=== PATIENT | female | born 1960 | race Caucasian/White ===

== ENCOUNTER 2025-03-18 09:31 | Emergency (ER) | payer OTHER ==
[~2025-03-18] VITALS: Ht 160 cm; Wt 126.1 kg
[2025-03-18 09:57] LABS: WHITE BLOOD COUNT (AUTO) 6.9 K/uL (4.3-11.0)
[2025-03-18 10:04] LABS: PLATELET COUNT (AUTO) 270 K/uL (150-450)
[2025-03-18 10:07] LABS: RED BLOOD CELL COUNT(AUTO) 4.69 MIL/uL (4.0-5.2); RED CELL DISTRIBUTION WIDTH 13.4 % (11.5-15.0)
[2025-03-18 10:13] LABS: ASPARTATE AMINOTRANSFERASE 21 U/L (15-37); CALCIUM, SERUM 9.4 mg/dL (8.5-10.1); CREATININE 0.8 mg/dL (0.6-1.3); SODIUM SERUM 138 mmol/L (136-145); TOTAL PROTEIN, SERUM 7.4 g/dL (6.4-8.2); UREA NITROGEN, BLOOD 28 mg/dL (7-18)
[2025-03-18] MEDS ORDERED: MECLIZINE HCL 25 MG TABLET ONE (10:49)
[2025-03-18] MEDS: MECLIZINE HCL 25 MG TABLET PO ONE (10:55)
[2025-03-18 11:19] LABS: EOSINOPHILS % (MANUAL) 1 % (0-4); LYMPHOCYTES % (MANUAL) 24 % (16-48); MONOCYTES % (MANUAL) 3 % (0-11.0); NEUTROPHILS % (MANUAL) 72 (42-76)
[2025-03-18 11:20] LABS: PLATELET ESTIMATE ADEQUATE
[2025-03-18] MEDS ORDERED: MECL-159 PO (11:29)
[2025-03-18 13:22] VITALS: BP 138/70; TEMP 97.6; O2SAT 98
== END 2025-03-18 13:24 | disposition home or self-care (01) ==
LOC: ER 09:33
DX: R42 Dizziness and giddiness (principal); R53.1 Weakness; I11.9 Hypertensive heart disease without heart failure; E11.9 Type 2 diabetes mellitus without complications; Z74.01 Bed confinement status; Z88.0 Allergy status to penicillin; Z20.822 Contact with and (suspected) exposure to COVID-19; Z88.8 Allergy status to other drugs, medicaments and biological substances
CPT/HCPCS: 99285; 70450; 71045; 87426; 93005; 85025; 80048; 83690; 80076; 36415; 84484; 82962; J8597

== ENCOUNTER 2025-03-20 08:34 | Emergency (ER) | payer OTHER, MEDICAID ==
[~2025-03-20] VITALS: Ht 157.5 cm; Wt 123.4 kg
[2025-03-20] MEDS: RACEPINEPHRINE HCL 2.25% NEB 0.5 ML VIAL.NEB IH ONE (01:36)
[~2025-03-20 08:34] MED LIST: MECL-159 PO
[2025-03-20] MEDS ORDERED: dexaMETHasone SOD PHOSPHATE 1 ML ONE (09:01)
[2025-03-20 09:06] LABS: PLATELET COUNT (AUTO) 336 K/uL (150-450); RED BLOOD CELL COUNT(AUTO) 4.84 MIL/uL (4.0-5.2); RED CELL DISTRIBUTION WIDTH 13.1 % (11.5-15.0); WHITE BLOOD COUNT (AUTO) 11.9 K/uL (4.3-11.0)
[2025-03-20] MEDS: dexaMETHasone SOD PHOSPHATE 10 MG/ML VIAL IV ONE (09:06)
[2025-03-20 09:13] LABS: CALCIUM, SERUM 9.4 mg/dL (8.5-10.1); CREATININE 0.9 mg/dL (0.6-1.3); SODIUM SERUM 138 mmol/L (136-145); UREA NITROGEN, BLOOD 28 mg/dL (7-18)
[2025-03-20 09:21] LABS: LACTIC ACID 1.5 mmol/L (0.4-2.0)
[2025-03-20 09:26] LABS: ASPARTATE AMINOTRANSFERASE 15 U/L (15-37); NT-PRO BNP 94 pg/mL (0-125); TOTAL PROTEIN, SERUM 7.8 g/dL (6.4-8.2)
[2025-03-20] MEDS ORDERED: LORAZEPAM INJ 2 MG/ML VIAL ONE (09:52)
[2025-03-20] MEDS ORDERED: hydrALAZINE HCL IV 20 MG VIAL ONE (09:52)
[2025-03-20] MEDS ORDERED: MECLIZINE HCL 25 MG TABLET PO PRN (10:00)
[2025-03-20] MEDS: LORAZEPAM INJ 2 MG/ML VIAL IV ONE (10:09)
[2025-03-20] MEDS: hydrALAZINE HCL IV 20 MG VIAL IV ONE (10:09)
[2025-03-20] MEDS ORDERED: IOHEXOL-350 100 ML VIAL IV ONE (10:27)
[2025-03-20] MEDS ORDERED: IOHEXOL-300 100 ML VIAL IV ONE (10:27)
[2025-03-20] MEDS ORDERED: IV NS 0.9% 250 ML IV ONE (10:27)
[2025-03-20 12:57] LABS: ABG BASE EXCESS -4.4 mmol/L (-2.0-3.0); ABG OXYGEN SATURATION 96.3 % (94.0-98.0); ABG PCO2 66.3 mmHg (32.0-45.0); ABG PH 7.197 (7.350-7.450); ABG PO2 99.7 mmHg (83.0-108.0); ABG TOTAL HEMOGLOBIN 15.3 G/dL (12.0-16.0); FLOW, BLOOD GAS 2.00 L/min (0.00-30.00); FRACTIONATED INSPIRED OXYGEN 28.0 %; SITE, ABG LEFT RADIAL
[2025-03-20 13:27] LABS: ABG BASE EXCESS -6.9 mmol/L (-2.0-3.0); ABG OXYGEN SATURATION 97.1 % (94.0-98.0); ABG PCO2 68.1 mmHg (32.0-45.0); ABG PH 7.153 (7.350-7.450); ABG PO2 109.3 mmHg (83.0-108.0); ABG TOTAL HEMOGLOBIN 15.5 G/dL (12.0-16.0); FRACTIONATED INSPIRED OXYGEN 30.0 %; SET RATE, BG 20.0; SITE, ABG LEFT RADIAL
[2025-03-20] MEDS ORDERED: RACEPINEPHRINE HCL 2.25% NEB 0.5 ML VIAL.NEB IH ONE (13:37)
[2025-03-20 15:30] VITALS: BP 105/72; TEMP 96.8; O2SAT 98
[2025-03-20 15:48] LABS: ABG BASE EXCESS -5.6 mmol/L (-2.0-3.0); ABG OXYGEN SATURATION 96.0 % (94.0-98.0); ABG PCO2 57.7 mmHg (32.0-45.0); ABG PH 7.220 (7.350-7.450); ABG PO2 94.3 mmHg (83.0-108.0); ABG TOTAL HEMOGLOBIN 15.5 G/dL (12.0-16.0); FRACTIONATED INSPIRED OXYGEN 24.0 %; SET RATE, BG 20.0; SITE, ABG LEFT RADIAL
== END 2025-03-20 17:11 ==
LOC: ER 08:40
DX: R06.03 Acute respiratory distress (principal); I10 Essential (primary) hypertension; E11.9 Type 2 diabetes mellitus without complications; J38.6 Stenosis of larynx; Z88.0 Allergy status to penicillin; M54.2 Cervicalgia; Z20.822 Contact with and (suspected) exposure to COVID-19
CPT/HCPCS: 99291; 70491; 96374; 96375; 71045; 87426; 99292; 93005; 82803; 71275; 85025; 80048; 83605; 80076; 85378; 36415; 84484; 83880; 36600; 94660; 94799; 94640; J2060; J1100; J0360; J7050; Q9967 ×2